=== PATIENT | female | born 1955 | race Asian ===

== ENCOUNTER 2023-01-14 15:31 | Emergency (ER) | payer OTHER ==
[~2023-01-14] VITALS: Ht 162.6 cm; Wt 68.5 kg
[2023-01-14 15:40] VITALS: BP_SYST 154
--- NOTE | 2023-01-14 15:40 | NUR ---
Patient triaged and placed in waiting room. VSS and patient appears in no acute distress at this time. Accompanied by , awaiting available bed, and MD notified of need for MSE.
--- NOTE | 2023-01-14 15:42 | NUR ---
PT BIB FROM HOME C/O ABD PAIN X 4 HOURS. PT STATES SHE THINKS SHE ATE SOMETHING BAD, LAST MEAL WAS AT 11AM. PT DENIES N/V/D, IS AMBULATORY, AAOX4, VSS
[2023-01-14] MEDS ORDERED: MAG HYDROX/AL HYDROX/SIMETH 30 ML, DICYCLOMINE HCL 20 MG, LIDOCAINE VISCOUS 2% 15ML (PO... PO ONE ×3 (16:45)
[2023-01-14 17:23] LABS: BASOPHILS % (AUTO) 0.1 % (0.0-2.0); EOSINOPHILS % (AUTO) 0.2 % (0.0-4.0); HEMATOCRIT 40.4 % (36-48); HEMOGLOBIN 13.9 g/dL (12.0-16.0); LYMPHOCYTES # (AUTO) 0.5 K/uL (1.0-5.5); LYMPHOCYTES % (AUTO) 5.1 % (20.5-51.5); MEAN CORPUSCULAR HEMOGLOBIN 32 pg (27-31); MEAN CORPUSCULAR HGB CONC 34 % (32-36); MEAN CORPUSCULAR VOLUME 93 fL (79.0-98.0); MONOCYTES # (AUTO) 0.6 K/uL (0.0-1.0); MONOCYTES % (AUTO) 5.3 % (1.7-9.3); NEUTROPHILS # (AUTO) 9.5 K/uL (1.8-7.7); NEUTROPHILS % (AUTO) 89.3 % (40.0-70.0); PLATELET COUNT (AUTO) 162 K/uL (130-430); RED BLOOD CELL COUNT(AUTO) 4.35 MIL/uL (4.2-6.2); RED CELL DISTRIBUTION WIDTH 12.6 % (9.0-15.0); WHITE BLOOD COUNT (AUTO) 10.7 K/uL (4.8-10.8)
[2023-01-14 17:37] LABS: ANION GAP 12 (5-15); CALCIUM 9.3 mg/dL (8.4-11.0); CHLORIDE 96 mmol/L (98-107); CREATININE 1.05 mg/dL (0.55-1.30); GLUCOSE 157 mg/dL (70-99); UREA NITROGEN, BLOOD 20 mg/dL (8-21)
[2023-01-14 17:42] LABS: ALANINE AMINOTRANSFERASE 173 U/L (12-78); ALBUMIN 4.1 g/dL (3.4-4.8); AMYLASE 49 U/L (0-100); ASPARTATE AMINOTRANSFERASE 306 U/L (10-37); LIPASE 124 U/L (73-393); TOTAL BILIRUBIN 1.1 mg/dL (0.0-1.0)
[2023-01-14 17:45] LABS: GFR AFRICAN AMERICAN 67 mL/min (>90)
--- NOTE | 2023-01-14 18:00 | NUR ---
ER at bedside examining patient.
--- NOTE | 2023-01-14 18:11 | NUR ---
MEDICATED PER MD ORDER. PT TOLERATED WELL.
--- NOTE | 2023-01-14 19:05 | NUR ---
Patient given written and verbal discharge instructions and verbalizes understanding. ER MD discussed with patient the results and treatment provided. Patient in stable condition. ID arm band removed. Patient educated on pain management and to follow up with PMD. Opportunity for questions provided and answered. Medication side effect fact sheet provided.
[2023-01-14 19:19] VITALS: BP_SYST 154
== END 2023-01-14 19:19 | disposition home or self-care (01) ==
LOC: SED 15:31
DX: K75.9 Inflammatory liver disease, unspecified (principal); R10.13 Epigastric pain; K21.9 Gastro-esophageal reflux disease without esophagitis; I10 Essential (primary) hypertension; Z79.899 Other long term (current) drug therapy
CPT/HCPCS: 99284; 74176; 80053; 82150; 83690; 85025; 84484; 36415; 76376; J2001